=== PATIENT | male | born 1995 | race Caucasian/White ===

== ENCOUNTER 2018-04-19 10:34 | Emergency (ER) | payer SELFPAY ==
[~2018-04-19] VITALS: Ht 190.5 cm; Wt 93.0 kg
[2018-04-19] MEDS ORDERED: IBUPROFEN 800MG TABLET PO ONE (11:00)
[2018-04-19 13:00] VITALS: BP 125/72
== END 2018-04-19 13:01 | disposition home or self-care (01) ==
LOC: ER 11:03
DX: S32.058A Other fracture of fifth lumbar vertebra, initial encounter for closed fracture (principal); S20.219A Contusion of unspecified front wall of thorax, initial encounter; V49.59XA Passenger injured in collision with other motor vehicles in traffic accident, initial encounter; Y93.89 Activity, other specified; Y92.89 Other specified places as the place of occurrence of the external cause; Y99.8 Other external cause status
CPT/HCPCS: 71045; 72100; 99284